=== PATIENT | male | born 1940 | race African-American/Black ===

== ENCOUNTER 2021-03-15 19:29 | Inpatient (IN) | payer OTHER ==
[~2021-03-15] VITALS: Ht 188 cm; Wt 80.0 kg
[2021-03-15] MEDS ORDERED: ASPIRIN 81MG TABLET PO ONE (19:45)
[2021-03-15] MEDS ORDERED: NITROGLYCERIN 0.4MG TABLET SL SL PRN (19:45)
[2021-03-15 20:29] LABS: CHLORIDE 106 mEq/L (98-107)
[2021-03-15 21:01] LABS: HEMOGLOBIN. 14.7 g/dL (14.0-18.0); MEAN CORPUSCULAR HEMOGLOBIN 29.6 pg (28.0-32.0); MEAN CORPUSCULAR VOLUME 90.6 fL (80.0-94.0); PLATELET 217 x1000/uL (130-400); RED BLOOD CELL COUNT 4.97 mill/uL (4.7-6.1); RED CELL DISTRIBUTION WIDTH 13.7 % (11.6-14.6)
[2021-03-15 21:59] LABS: PLATELET ESTIMATE NORMAL
[2021-03-16] MEDS ORDERED: ASPIRIN 81MG TABLET PO NR (01:15)
[2021-03-16 09:35] VITALS: BP 175/82
[2021-03-16] MEDS ORDERED: NEBI10TA2 PO (10:08)
[2021-03-16] MEDS ORDERED: CINN500C5 PO (10:08)
[2021-03-16] MEDS ORDERED: TURM500C6 PO (10:08)
[2021-03-16] MEDS ORDERED: AMLO10TA80 PO (10:08)
[2021-03-16] MEDS ORDERED: ONDANSETRON HCL 4MG/2ML INJ IV PRN (10:45)
[2021-03-16] MEDS ORDERED: AMLODIPINE 10MG TABLET PO SCH (10:45)
[2021-03-16] MEDS ORDERED: IPRATROPIUM/ALBUTEROL 0.5-3(2.5)MG/3ML NEB HHN PRN (10:45)
[2021-03-16 12:00] VITALS: BP 165/83
[2021-03-16] MEDS ORDERED: METOPROLOL TARTRATE 50MG TABLET PO NR (15:30)
[2021-03-16 16:00] VITALS: BP 157/82
[2021-03-16] MEDS: ENOXAPARIN 80MG/0.8ML SYR SUBCUT SCH ×2 (16:29→23:27)
[2021-03-16 20:00] VITALS: BP 127/68
[2021-03-16] MEDS: METOPROLOL TARTRATE 50MG TABLET PO SCH (20:30)
[2021-03-16] MEDS: HYDROCORTISONE 1% OINT 28.35GM TOP SCH (20:30)
[2021-03-16 20:40] LABS: *BARBITURATES SCREEN URINE NEGATIVE (NEGATIVE)
[2021-03-16 20:41] LABS: *AMPHETAMINES SCREEN URINE NEGATIVE (NEGATIVE); *BENZODIAZEPINES SCREEN URINE NEGATIVE (NEGATIVE); *COCAINE SCREEN URINE NEGATIVE (NEGATIVE); METHADONE URINE SCREEN NEGATIVE (NEGATIVE); OPIATES URINE SCREEN NEGATIVE (NEGATIVE); PHENCYCLIDINE URINE SCREEN NEGATIVE (NEGATIVE)
[2021-03-16 20:42] LABS: CANNABINOID URINE SCREEN NEGATIVE (NEGATIVE)
[2021-03-16 21:29] LABS: INR 1.2; PROTHROMBIN TIME 12.3 sec (9.6-11.0)
[2021-03-17] VITALS: BP 138/72
[2021-03-17 04:00] VITALS: BP 150/86
[2021-03-17 06:06] LABS: CREATINE KINASE MB FRACTION 6.8 ng/mL (0.5-3.6)
[2021-03-17] MEDS: ASPIRIN 81MG TABLET PO SCH (09:35)
[2021-03-17] MEDS: ENOXAPARIN 80MG/0.8ML SYR SUBCUT SCH ×2 (09:36→21:06)
[2021-03-17] MEDS: AMLODIPINE 5MG TABLET PO SCH (09:36)
[2021-03-17] MEDS: ACETAMINOPHEN 325MG TABLET PO PRN (09:38)
[2021-03-17] MEDS: HYDROCORTISONE 1% OINT 28.35GM TOP SCH ×2 (09:39→21:06)
[2021-03-17] MEDS: METOPROLOL TARTRATE 50MG TABLET PO SCH ×2 (09:44→21:06)
[2021-03-17 09:45] VITALS: BP 166/91
[2021-03-17] MEDS ORDERED: HYDRALAZINE HCL 100MG TABLET PO NR (14:15)
[2021-03-17] MEDS: SODIUM CHLORIDE 0.9% 1,000 ML IV SCH (14:39)
[2021-03-17 20:00] VITALS: BP 156/61
[2021-03-17] MEDS: HYDRALAZINE HCL 100MG TABLET PO SCH (21:05)
[2021-03-17] MEDS: ATORVASTATIN CALCIUM 20MG TABLET PO SCH (21:05)
[2021-03-18] VITALS (7 sets, daily range): BP systolic 114–143; BP diastolic 52–66
[2021-03-18] MEDS: SODIUM CHLORIDE 0.9% 1,000 ML IV SCH ×2 (03:54→16:48)
[2021-03-18] MEDS: ASPIRIN 81MG TABLET PO SCH (08:53)
[2021-03-18] MEDS: METOPROLOL TARTRATE 50MG TABLET PO SCH ×2 (08:54→22:00)
[2021-03-18] MEDS: AMLODIPINE 5MG TABLET PO SCH (08:54)
[2021-03-18] MEDS: HYDRALAZINE HCL 100MG TABLET PO SCH ×2 (08:54→22:00)
[2021-03-18] MEDS: HYDROCORTISONE 1% OINT 28.35GM TOP SCH ×3 (08:55→22:05)
[2021-03-18] MEDS: ENOXAPARIN 80MG/0.8ML SYR SUBCUT SCH ×2 (08:58→22:01)
[2021-03-18] MEDS: CLOPIDOGREL 75MG TABLET PO SCH (12:00)
[2021-03-18 19:09] LABS: BASOPHILS % 0.8 % (0.0-2.0); EOSINOPHILS % 6.8 % (0.0-5.0); HEMATOCRIT. 43.7 % (42.0-52.0); HEMOGLOBIN. 14.2 g/dL (14.0-18.0); LYMPHOCYTES % 18.1 % (20.0-50.0); MEAN CORPUSCULAR HEMOGLOBIN 29.5 pg (28.0-32.0); MEAN CORPUSCULAR VOLUME 90.6 fL (80.0-94.0); MEAN PLATELET VOLUME 9.2 fl (7.4-10.4); MONOCYTES % 8.8 % (2.0-8.0); NEUTROPHILS % 65.5 % (40.0-76.0); PLATELET 205 x1000/uL (130-400); RED BLOOD CELL COUNT 4.82 mill/uL (4.7-6.1); RED CELL DISTRIBUTION WIDTH 13.6 % (11.6-14.6)
[2021-03-18 19:29] LABS: CHLORIDE 111 mEq/L (98-107)
[2021-03-18] MEDS: ATORVASTATIN CALCIUM 20MG TABLET PO SCH (22:00)
[2021-03-19 04:00] VITALS: BP 123/66
[2021-03-19] MEDS: SODIUM CHLORIDE 0.9% 1,000 ML IV SCH ×2 (06:03→21:04)
[2021-03-19 08:00] VITALS: BP 146/78
[2021-03-19] MEDS: ENOXAPARIN 80MG/0.8ML SYR SUBCUT SCH ×2 (09:00→21:03)
[2021-03-19] MEDS: HYDROCORTISONE 1% OINT 28.35GM TOP SCH ×2 (10:16→21:02)
[2021-03-19] MEDS: AMLODIPINE 5MG TABLET PO SCH (10:17)
[2021-03-19] MEDS: HYDRALAZINE HCL 100MG TABLET PO SCH ×2 (10:17→21:04)
[2021-03-19] MEDS: CLOPIDOGREL 75MG TABLET PO SCH (10:17)
[2021-03-19] MEDS: ASPIRIN 81MG TABLET PO SCH (10:17)
[2021-03-19] MEDS: METOPROLOL TARTRATE 50MG TABLET PO SCH ×2 (10:18→21:04)
[2021-03-19 12:00] VITALS: BP 99/54
[2021-03-19] MEDS ORDERED: INFLUENZA VACCINE 05/PF 0.5 ML SYRINGE IM ONE ×2 (12:30)
[2021-03-19] MEDS: ACETAMINOPHEN 325MG TABLET PO PRN (14:05)
[2021-03-19 16:00] VITALS: BP 128/60
[2021-03-19 20:00] VITALS: BP 121/55
[2021-03-19] MEDS: ATORVASTATIN CALCIUM 20MG TABLET PO SCH (21:04)
[2021-03-20] VITALS (9 sets, daily range): BP systolic 104–145; BP diastolic 48–68
[2021-03-20] MEDS ORDERED: HEPARIN SODIUM 1,000 UNIT/1ML VIAL IV ONE (08:07)
[2021-03-20] MEDS ORDERED: NICARDIPINE 100MCG/ML 10ML VIAL (CATH LAB) IV ONE (08:07)
[2021-03-20] MEDS ORDERED: NITROGLYCERIN 50MCG/ML 10ML VIAL (CATH LAB) IV ONE (08:07)
[2021-03-20] MEDS: SODIUM CHLORIDE 0.9% 1,000 ML IV SCH ×2 (08:55→22:42)
[2021-03-20] MEDS: ASPIRIN 81MG TABLET PO SCH (09:00)
[2021-03-20] MEDS: CLOPIDOGREL 75MG TABLET PO SCH (09:00)
[2021-03-20] MEDS: ENOXAPARIN 80MG/0.8ML SYR SUBCUT SCH ×2 (09:00→21:08)
[2021-03-20] MEDS: METOPROLOL TARTRATE 50MG TABLET PO SCH ×2 (09:24→21:07)
[2021-03-20] MEDS: AMLODIPINE 5MG TABLET PO SCH (09:24)
[2021-03-20] MEDS: HYDRALAZINE HCL 100MG TABLET PO SCH ×2 (09:24→21:06)
[2021-03-20] MEDS: HYDROCORTISONE 1% OINT 28.35GM TOP SCH ×2 (09:25→21:06)
[2021-03-20] MEDS ORDERED: IODIXANOL 320MG/ML 100 ML BOTTLE IV ONE (16:11)
[2021-03-20] MEDS ORDERED: LIDOCAINE HCL 1% 20ML VIAL (Pyxis) INJ ONE (16:11)
[2021-03-20] MEDS ORDERED: FENTANYL CITRATE/PF 50MCG/ML 2ML VIAL ONE (16:11)
[2021-03-20] MEDS ORDERED: MIDAZOLAM HCL 2 MG/2 ML VIAL ONE (16:11)
[2021-03-20] MEDS ORDERED: ATROPINE SULFATE 1MG/10ML SYR IV PRN (17:30)
[2021-03-20] MEDS ORDERED: ATROPINE SULFATE 1MG/ML VIAL IV PRN (17:45)
[2021-03-20] MEDS ORDERED: ALPRAZOLAM 0.25 MG TABLET PO PRN (18:30)
[2021-03-20] MEDS ORDERED: NITROGLYCERIN 0.4MG TABLET SL SL PRN (18:30)
[2021-03-20] MEDS: SODIUM CHLORIDE 0.9% INJ 3ML FLUSH IVF SCH (21:03)
[2021-03-20] MEDS: ATORVASTATIN CALCIUM 20MG TABLET PO SCH (21:08)
[2021-03-21] VITALS (12 sets, daily range): BP systolic 113–169; BP diastolic 60–80
[2021-03-21] MEDS: SODIUM CHLORIDE 0.9% INJ 3ML FLUSH IVF SCH ×3 (05:03→21:04)
[2021-03-21] MEDS: ASPIRIN 81MG TABLET PO SCH (08:09)
[2021-03-21] MEDS: METOPROLOL TARTRATE 50MG TABLET PO SCH ×2 (08:09→20:56)
[2021-03-21] MEDS: AMLODIPINE 5MG TABLET PO SCH ×3 (08:10→20:57)
[2021-03-21] MEDS: ENOXAPARIN 80MG/0.8ML SYR SUBCUT SCH (08:10)
[2021-03-21] MEDS: HYDROCORTISONE 1% OINT 28.35GM TOP SCH ×2 (08:10→20:55)
[2021-03-21] MEDS: HYDRALAZINE HCL 100MG TABLET PO SCH ×2 (08:10→20:55)
[2021-03-21] MEDS: SODIUM CHLORIDE 0.9% 1,000 ML IV SCH ×2 (12:24→23:59)
[2021-03-21 12:52] LABS: CHLORIDE 109 mEq/L (98-107)
[2021-03-21 12:53] LABS: HEMATOCRIT 41.8 % (42.0-52.0); HEMOGLOBIN 13.8 g/dL (14.0-18.0); MEAN CORPUSCULAR VOLUME 90.9 fL (80.0-94.0); PLATELET 206 x1000/uL (130-400); RED CELL DISTRIBUTION WIDTH 13.9 % (11.6-14.6)
[2021-03-21 13:01] LABS: INR 1.1; PARTIAL THROMBOPLASTIN TIME 38.9 sec (23.4-31.0); PROTHROMBIN TIME 12.2 sec (9.6-11.0)
[2021-03-21] MEDS ORDERED: POTASSIUM CHLORIDE 20MEQ TABLET SR PO NR (17:00)
[2021-03-21] MEDS: ALLOPURINOL 300 MG TABLET PO SCH (20:56)
[2021-03-21] MEDS: ATORVASTATIN CALCIUM 20MG TABLET PO SCH (20:56)
[2021-03-21] MEDS ORDERED: ASCORBIC ACID 500 MG TABLET PO SCH (21:00)
[2021-03-21] MEDS ORDERED: CHLORHEXIDINE GLUCONATE 4% EXTERNAL USE TOP SCH (21:00)
[2021-03-21] MEDS ORDERED: BISACODYL 10MG SUPP PR PRN (21:00)
[2021-03-21] MEDS ORDERED: DOCUSATE SODIUM 100MG CAPSULE PO SCH (21:00)
[2021-03-21] MEDS ORDERED: IOHEXOL-350 100 ML BOTTLE ONE (21:39)
[2021-03-22] VITALS (58 sets, daily range): BP systolic 89–181; BP diastolic 21–94
[2021-03-22] MEDS ORDERED: BLOOD SUGAR DIAGNOSTIC STRIP TEST ONE (04:00)
[2021-03-22] MEDS: ALLOPURINOL 300 MG TABLET PO SCH (04:44)
[2021-03-22] MEDS ORDERED: CEFAZOLIN 2,000 MG in DEXT 5% WATER 100 ML IV ONE (05:00)
[2021-03-22] MEDS: SODIUM CHLORIDE 0.9% INJ 3ML FLUSH IVF SCH ×3 (05:14→20:44)
[2021-03-22] MEDS ORDERED: POLYMYXIN B SULFATE 500000 UNITS/VIAL ONE (05:28)
[2021-03-22] MEDS ORDERED: BACITRACIN 15GM TUBE TOP ONE (05:29)
[2021-03-22] MEDS ORDERED: SKIN ADHESIVE 0.7 GM EA TOP ONE (05:29)
[2021-03-22] MEDS ORDERED: THROMBIN (BOVINE) 5000 UNITS/VIAL TOP ONE ×3 (05:29→11:22)
[2021-03-22] MEDS ORDERED: NICARDIPINE 40MG/200ML PREMIX 200 ML IV ONE (05:32)
[2021-03-22] MEDS ORDERED: DOPAMINE 400MG/250ML PREMIX 250 ML IV ONE (05:33)
[2021-03-22] MEDS ORDERED: HEPARIN 1000 UNITS/ML 10ML ONE ×3 (05:52→08:48)
[2021-03-22 05:54] LABS: CHLORIDE 107 mEq/L (98-107)
[2021-03-22 05:56] LABS: BASOPHILS % 0.7 % (0.0-2.0); EOSINOPHILS % 7.2 % (0.0-5.0); HEMATOCRIT. 42.1 % (42.0-52.0); HEMOGLOBIN. 14.1 g/dL (14.0-18.0); LYMPHOCYTES % 16.4 % (20.0-50.0); MONOCYTES % 9.8 % (2.0-8.0); NEUTROPHILS % 65.9 % (40.0-76.0); PLATELET 198 x1000/uL (130-400); RED BLOOD CELL COUNT 4.68 mill/uL (4.7-6.1); RED CELL DISTRIBUTION WIDTH 13.6 % (11.6-14.6)
[2021-03-22] MEDS ORDERED: PAPAVERINE HCL 180MG in SODIUM CHLORIDE 0.9% 24ML IV SCH (06:00)
[2021-03-22] MEDS ORDERED: DEL NIDO ELECTROLYTE-S(PH 7.4) 1,000 ML IV SCH ×2 (06:00)
[2021-03-22] MEDS ORDERED: CEFAZOLIN 2,000 MG in DEXT 5% WATER 100 ML IV SCH (06:00)
[2021-03-22] MEDS ORDERED: INSULIN REGULAR (DRIP) 100 UNITS in SODIUM CHLORIDE 0.9% 99 ML IV SCH ×2 (06:00→15:00)
[2021-03-22] MEDS ORDERED: NOREPINEPHRINE 8 MG in DEXT 5% WATER 242 ML IV SCH (06:00)
[2021-03-22] MEDS ORDERED: AMINOCAPROIC ACID 5,000 MG in SODIUM CHLORIDE 0.9% 230 ML IV SCH (06:00)
[2021-03-22] MEDS ORDERED: NICARDIPINE 50 MG in NS 230 ML IV SCH (06:00)
[2021-03-22] MEDS ORDERED: CHLORHEXIDINE GLUCONATE 4% EXTERNAL USE TOP SCH (06:00)
[2021-03-22] MEDS ORDERED: EPINEPHRINE 5 MG in DEXT 5% WATER 245 ML IV SCH (06:00)
[2021-03-22] MEDS ORDERED: FENTANYL CITRATE/PF 50MCG/ML 5ML VIAL ONE (06:40)
[2021-03-22] MEDS ORDERED: ETOMIDATE 2MG/ML 10ML VIAL IV ONE (06:41)
[2021-03-22] MEDS ORDERED: ACETAMINOPHEN 500MG TABLET ONE (06:41)
[2021-03-22] MEDS ORDERED: ROCURONIUM BROMIDE 10MG/ML VIAL 5ML IV ONE (06:42)
[2021-03-22] MEDS ORDERED: LIDOCAINE HCL 2% 5ML SYRINGE IV ONE ×2 (06:43→08:13)
[2021-03-22] MEDS ORDERED: CALCIUM CHLORIDE 1GM/10ML SYR IV ONE ×3 (06:43→11:09)
[2021-03-22 06:45] LABS: INR 1.1; PROTHROMBIN TIME 11.4 sec (9.6-11.0)
[2021-03-22] MEDS ORDERED: PROPOFOL 200MG/20ML VIAL IV ONE (06:59)
[2021-03-22 07:28] LABS: BG BASE EXCESS -2.4 mmol/L (-2.0-2.0); BG CARBOXYHEMOGLOBIN 0.5 % (0.5-1.5); BG DEOXYHEMOGLOBIN 0.4 % (0.0-5.0); BG FRACTION INSPIRED OXYGEN 100; BG HCO3 ACT 22.2 mmol/L (22.0-26.0); BG METHEMOGLOBIN 0.3 % (0.0-1.5); BG OXYGEN SATURATION 99.6 % (92.0-98.5); BG OXYHEMOGLOBIN 98.8 % (94.0-97.0); BG PCO2 37.8 mmHg (35.0-45.0); BG PH 7.386 (7.350-7.450); BG PO2 450.6 mmHg (75.0-100.0); BG SAMPLE SITE ALINE; BG TOTAL HEMOGLOBIN 14.2 g/dL (12.0-18.0)
[2021-03-22] MEDS ORDERED: NITROGLYCERIN 50MG PREMIX 250 ML IV ONE (08:00)
[2021-03-22] MEDS ORDERED: AMINOCAPROIC ACID 250 MG/ML 20ML VIAL ONE ×2 (08:12→08:36)
[2021-03-22] MEDS ORDERED: ALBUMIN HUMAN 25GM/100ML (25%) IV ONE (08:13)
[2021-03-22] MEDS ORDERED: SODIUM BICARBONATE 8.4% 1 MEQ/ML 50ML SYR IV ONE (08:13)
[2021-03-22] MEDS ORDERED: HEPARIN 10,000 UNITS/ML VIAL ONE ×2 (08:13→08:48)
[2021-03-22] MEDS ORDERED: MAGNESIUM SULFATE 5GM/10ML VIAL IV ONE (08:13)
[2021-03-22] MEDS ORDERED: MANNITOL 20% (20GM/100ML) BAG 500ML PREMIX IV ONE (08:13)
[2021-03-22] MEDS ORDERED: POTASSIUM CHLORIDE 40MEQ/20ML INJ IV ONE (08:13)
[2021-03-22] MEDS ORDERED: PHENYLEPHRINE HCL 10 MG/ML 1ML (IV VIAL) IV ONE ×2 (08:13→10:40)
[2021-03-22] MEDS ORDERED: ALBUMIN HUMAN 25GM/500ML (5%) IV ONE (08:13)
[2021-03-22] MEDS: ENOXAPARIN 40MG/0.4ML SYR SUBCUT SCH (09:00)
[2021-03-22] MEDS: HYDROCORTISONE 1% OINT 28.35GM TOP SCH ×2 (09:00→21:14)
[2021-03-22] MEDS ORDERED: ENOXAPARIN 80MG/0.8ML SYR SUBCUT SCH (09:00)
[2021-03-22] MEDS: AMLODIPINE 5MG TABLET PO SCH ×2 (09:00→20:46)
[2021-03-22] MEDS: ASPIRIN 81MG TABLET PO SCH (09:00)
[2021-03-22] MEDS: HYDRALAZINE HCL 100MG TABLET PO SCH ×2 (09:00→20:45)
[2021-03-22] MEDS: METOPROLOL TARTRATE 50MG TABLET PO SCH ×2 (09:00→20:45)
[2021-03-22] MEDS ORDERED: VECURONIUM BROMIDE 10 MG/VIAL IV ONE (10:05)
[2021-03-22] MEDS ORDERED: SODIUM CHLORIDE 0.9% 10ML VIAL ONE (10:06)
[2021-03-22] MEDS ORDERED: KCL 10MEQ/50ML PREMIX 150 ML IV PRN (10:30)
[2021-03-22] MEDS ORDERED: KCL 10MEQ/50ML PREMIX 200 ML IV PRN (10:30)
[2021-03-22] MEDS ORDERED: METHYLENE BLUE 50 MG/10 ML AMP IV ONE (10:43)
[2021-03-22] MEDS ORDERED: VASOPRESSIN 20 UNITS in SODIUM CHLORIDE 0.9% 100 ML IV PRN (10:45)
[2021-03-22] MEDS ORDERED: VASOPRESSIN 20 UNIT/ML 1ML ONE (10:47)
[2021-03-22] MEDS ORDERED: INSULIN REGULAR (DRIP) 100 UNITS in SODIUM CHLORIDE 0.9% 100 ML IV SCH (11:00)
[2021-03-22] MEDS ORDERED: PROTAMINE SULFATE 10MG/ML VIAL 25ML IV ONE (12:23)
[2021-03-22] MEDS ORDERED: MAGNESIUM SULFATE 3 GM in DEXT 5% WATER 100 ML IV PRN ×2 (12:30→14:00)
[2021-03-22] MEDS ORDERED: MAGNESIUM 2 G PREMIX 50 ML IV PRN ×2 (12:30→14:00)
[2021-03-22] MEDS ORDERED: MAGNESIUM 1 G PREMIX 100 ML IV PRN ×2 (12:30→14:00)
[2021-03-22] MEDS ORDERED: CEFAZOLIN SODIUM 1000MG/VIAL ONE (12:56)
[2021-03-22] MEDS ORDERED: BLOOD SUGAR DIAGNOSTIC STRIP TEST SCH ×2 (13:00→15:00)
[2021-03-22] MEDS ORDERED: AMINOCAPROIC ACID 5,000 MG in SODIUM CHLORIDE 0.9% 230 ML IV ONE (13:00)
[2021-03-22] MEDS ORDERED: ONDANSETRON HCL 4MG/2ML INJ ONE (13:10)
[2021-03-22] MEDS ORDERED: PROPOFOL 10MG/ML 100ML 100 ML IV ONE (13:14)
[2021-03-22 13:41] LABS: HEMATOCRIT. 30.3 % (42.0-52.0); MEAN CORPUSCULAR HEMOGLOBIN 29.8 pg (28.0-32.0); MEAN CORPUSCULAR VOLUME 90.7 fL (80.0-94.0); MEAN PLATELET VOLUME 9.7 fl (7.4-10.4); PLATELET 123 x1000/uL (130-400); RED BLOOD CELL COUNT 3.34 mill/uL (4.7-6.1); RED CELL DISTRIBUTION WIDTH 13.5 % (11.6-14.6)
[2021-03-22 13:49] LABS: CHLORIDE 110 mEq/L (98-107)
[2021-03-22 13:53] LABS: INR 1.3; PARTIAL THROMBOPLASTIN TIME 30.5 sec (23.4-31.0); PROTHROMBIN TIME 13.9 sec (9.6-11.0)
[2021-03-22] MEDS ORDERED: ONDANSETRON HCL 4MG/2ML INJ IV PRN (14:00)
[2021-03-22] MEDS ORDERED: MORPHINE SULFATE 2 MG/ML CPJ (NOT FOR IM USE) IV PRN (14:00)
[2021-03-22] MEDS ORDERED: ACETAMINOPHEN 325MG TABLET PO PRN (14:00)
[2021-03-22] MEDS ORDERED: OXYCODONE HCL/ACETAMINOPHEN 5/325MG TABLET PO PRN ×2 (14:00)
[2021-03-22 14:31] LABS: BG BASE EXCESS 1.6 mmol/L (-2.0-2.0); BG CARBOXYHEMOGLOBIN 0.3 % (0.5-1.5); BG DEOXYHEMOGLOBIN 1.8 % (0.0-5.0); BG FRACTION INSPIRED OXYGEN 100; BG HCO3 ACT 25.8 mmol/L (22.0-26.0); BG METHEMOGLOBIN 0.4 % (0.0-1.5); BG OXYGEN SATURATION 98.2 % (92.0-98.5); BG OXYHEMOGLOBIN 97.5 % (94.0-97.0); BG PCO2 38.7 mmHg (35.0-45.0); BG PH 7.441 (7.350-7.450); BG PO2 157.1 mmHg (75.0-100.0); BG SAMPLE SITE ALINE; BG TOTAL HEMOGLOBIN 10.9 g/dL (12.0-18.0); BG VENT MODE VENT - AC
[2021-03-22 14:37] LABS: PLATELET ESTIMATE SLIGHTLY DECREASED
[2021-03-22] MEDS ORDERED: SODIUM CHLORIDE 0.9% 500 ML IV PRN (14:38)
[2021-03-22] MEDS: BLOOD SUGAR DIAGNOSTIC STRIP TEST SCH ×10 (14:51→23:11)
[2021-03-22] MEDS: DEXT 5%/0.45% NACL 1000ML 1,000 ML IV SCH ×2 (14:52→23:57)
[2021-03-22] MEDS: DOPAMINE 400MG/250ML PREMIX 250 ML IV PRN (14:55)
[2021-03-22] MEDS ORDERED: PROPOFOL 10MG/ML 100ML 100 ML IV PRN (15:00)
[2021-03-22] MEDS ORDERED: NALOXONE HCL 0.4MG/ML VIAL IV PRN (15:00)
[2021-03-22] MEDS: MAGNESIUM HYDROXIDE 400MG/5ML 30ML UDC PO SCH ×3 (15:18→23:41)
[2021-03-22] MEDS: ALBUMIN HUMAN 12.5G/250ML (5%) IV PRN ×2 (15:47→20:43)
[2021-03-22] MEDS ORDERED: ALBUMIN HUMAN 12.5G/250ML (5%) IV NR (16:00)
[2021-03-22] MEDS: KCL 10MEQ/50ML PREMIX 100 ML IV PRN (16:10)
[2021-03-22] MEDS: IPRATROPIUM/ALBUTEROL 0.5-3(2.5)MG/3ML NEB HHN SCH ×2 (16:21→21:05)
[2021-03-22 16:30] LABS: BG BASE EXCESS 0.8 mmol/L (-2.0-2.0); BG CARBOXYHEMOGLOBIN 0.3 % (0.5-1.5); BG DEOXYHEMOGLOBIN 4.3 % (0.0-5.0); BG FRACTION INSPIRED OXYGEN 75; BG HCO3 ACT 26.2 mmol/L (22.0-26.0); BG METHEMOGLOBIN 0.3 % (0.0-1.5); BG OXYGEN SATURATION 95.7 % (92.0-98.5); BG OXYHEMOGLOBIN 95.1 % (94.0-97.0); BG PCO2 45.6 mmHg (35.0-45.0); BG PH 7.378 (7.350-7.450); BG PO2 89.4 mmHg (75.0-100.0); BG SAMPLE SITE ALINE; BG TOTAL HEMOGLOBIN 9.7 g/dL (12.0-18.0); BG TOTAL RESPIRATORY RATE 20 b/min; BG VENT MODE VENT - AC
[2021-03-22] MEDS: DOCUSATE SODIUM 100MG CAPSULE PO SCH (18:07)
[2021-03-22] MEDS: CEFAZOLIN 1000MG PREMIX 50 ML IV SCH (18:08)
[2021-03-22 18:16] LABS: HEMATOCRIT. 27.4 % (42.0-52.0); HEMOGLOBIN. 9.1 g/dL (14.0-18.0); MEAN CORPUSCULAR HEMOGLOBIN 30.1 pg (28.0-32.0); MEAN CORPUSCULAR VOLUME 90.6 fL (80.0-94.0); MEAN PLATELET VOLUME 9.1 fl (7.4-10.4); PLATELET 128 x1000/uL (130-400); RED BLOOD CELL COUNT 3.03 mill/uL (4.7-6.1); RED CELL DISTRIBUTION WIDTH 13.4 % (11.6-14.6)
[2021-03-22 18:46] LABS: BG BASE EXCESS -0.7 mmol/L (-2.0-2.0); BG CARBOXYHEMOGLOBIN 0.3 % (0.5-1.5); BG DEOXYHEMOGLOBIN 3.8 % (0.0-5.0); BG FRACTION INSPIRED OXYGEN 75; BG HCO3 ACT 24.6 mmol/L (22.0-26.0); BG METHEMOGLOBIN 0.2 % (0.0-1.5); BG OXYGEN SATURATION 96.2 % (92.0-98.5); BG OXYHEMOGLOBIN 95.7 % (94.0-97.0); BG PCO2 43.4 mmHg (35.0-45.0); BG PH 7.372 (7.350-7.450); BG PO2 96.4 mmHg (75.0-100.0); BG TOTAL HEMOGLOBIN 9.9 g/dL (12.0-18.0); BG VENT MODE VENT - AC
[2021-03-22 19:45] LABS: PLATELET ESTIMATE SLIGHTLY DECREASED
[2021-03-22 20:04] LABS: BG BASE EXCESS -0.6 mmol/L (-2.0-2.0); BG CARBOXYHEMOGLOBIN 0.2 % (0.5-1.5); BG FRACTION INSPIRED OXYGEN 75; BG HCO3 ACT 24.5 mmol/L (22.0-26.0); BG METHEMOGLOBIN 0.3 % (0.0-1.5); BG OXYHEMOGLOBIN 94.5 % (94.0-97.0); BG PCO2 41.8 mmHg (35.0-45.0); BG PH 7.385 (7.350-7.450); BG PO2 84.2 mmHg (75.0-100.0); BG SAMPLE SITE ALINE; BG TOTAL HEMOGLOBIN 9.5 g/dL (12.0-18.0); BG VENT MODE VENT - AC
[2021-03-22] MEDS ORDERED: CALCIUM IV STA (20:52)
[2021-03-22] MEDS: ATORVASTATIN CALCIUM 20MG TABLET PO SCH (21:14)
[2021-03-22 22:11] LABS: BG BASE EXCESS -0.2 mmol/L (-2.0-2.0); BG CARBOXYHEMOGLOBIN 0.3 % (0.5-1.5); BG DEOXYHEMOGLOBIN 3.7 % (0.0-5.0); BG FRACTION INSPIRED OXYGEN 50; BG HCO3 ACT 24.4 mmol/L (22.0-26.0); BG OXYGEN SATURATION 96.3 % (92.0-98.5); BG PCO2 39.5 mmHg (35.0-45.0); BG PH 7.408 (7.350-7.450); BG PO2 93.2 mmHg (75.0-100.0); BG SAMPLE SITE ALINE; BG TOTAL HEMOGLOBIN 9.1 g/dL (12.0-18.0); BG VENT MODE VENT - AC
[2021-03-22] MEDS ORDERED: CALCIUM CHLORIDE 5,000 MG in DEXT 5% WATER 500 ML IV NR (22:30)
[2021-03-23] VITALS (122 sets, daily range): BP systolic 55–177; BP diastolic 29–79
[2021-03-23] MEDS: BLOOD SUGAR DIAGNOSTIC STRIP TEST SCH ×24 (00:28→23:00)
[2021-03-23] MEDS: IPRATROPIUM/ALBUTEROL 0.5-3(2.5)MG/3ML NEB HHN SCH ×6 (00:53→21:02)
[2021-03-23] MEDS: DOPAMINE 400MG/250ML PREMIX 250 ML IV PRN (01:03)
[2021-03-23 02:04] LABS: BG CARBOXYHEMOGLOBIN 0.3 % (0.5-1.5); BG DEOXYHEMOGLOBIN 6.7 % (0.0-5.0); BG FRACTION INSPIRED OXYGEN 40; BG HCO3 ACT 25.2 mmol/L (22.0-26.0); BG METHEMOGLOBIN 0.4 % (0.0-1.5); BG OXYGEN SATURATION 93.3 % (92.0-98.5); BG OXYHEMOGLOBIN 92.6 % (94.0-97.0); BG PCO2 43.6 mmHg (35.0-45.0); BG PO2 73.2 mmHg (75.0-100.0); BG SAMPLE SITE ALINE; BG TOTAL HEMOGLOBIN 9.4 g/dL (12.0-18.0); BG VENT MODE VENT - AC
[2021-03-23] MEDS: CEFAZOLIN 1000MG PREMIX 50 ML IV SCH ×3 (02:12→17:00)
[2021-03-23 02:33] LABS: HEMATOCRIT. 26.6 % (42.0-52.0); HEMOGLOBIN. 8.9 g/dL (14.0-18.0); MEAN CORPUSCULAR HEMOGLOBIN 30.5 pg (28.0-32.0); MEAN CORPUSCULAR VOLUME 91.3 fL (80.0-94.0); PLATELET 119 x1000/uL (130-400); RED BLOOD CELL COUNT 2.91 mill/uL (4.7-6.1); RED CELL DISTRIBUTION WIDTH 13.7 % (11.6-14.6)
[2021-03-23 02:45] LABS: PHOSPHORUS 2.9 mg/dL (2.5-4.9)
[2021-03-23 03:34] LABS: BG BASE EXCESS 1.1 mmol/L (-2.0-2.0); BG CARBOXYHEMOGLOBIN 0.3 % (0.5-1.5); BG DEOXYHEMOGLOBIN 6.7 % (0.0-5.0); BG FRACTION INSPIRED OXYGEN 40; BG HCO3 ACT 26.3 mmol/L (22.0-26.0); BG METHEMOGLOBIN 0.4 % (0.0-1.5); BG OXYGEN SATURATION 93.3 % (92.0-98.5); BG OXYHEMOGLOBIN 92.6 % (94.0-97.0); BG PCO2 44.8 mmHg (35.0-45.0); BG PH 7.387 (7.350-7.450); BG PO2 71.5 mmHg (75.0-100.0); BG SAMPLE SITE ALINE; BG TOTAL HEMOGLOBIN 9.6 g/dL (12.0-18.0); BG VENT MODE VENT - CPAP
[2021-03-23] MEDS: MAGNESIUM HYDROXIDE 400MG/5ML 30ML UDC PO SCH ×4 (04:18→15:33)
[2021-03-23] MEDS: ACETAMINOPHEN 325MG TABLET PO PRN (04:18)
[2021-03-23] MEDS: SODIUM CHLORIDE 0.9% INJ 3ML FLUSH IVF SCH ×3 (04:19→21:32)
[2021-03-23 07:59] LABS: BG BASE EXCESS -1.7 mmol/L (-2.0-2.0); BG CARBOXYHEMOGLOBIN 0.3 % (0.5-1.5); BG DEOXYHEMOGLOBIN 9.6 % (0.0-5.0); BG FRACTION INSPIRED OXYGEN 28; BG HCO3 ACT 24.1 mmol/L (22.0-26.0); BG METHEMOGLOBIN 0.4 % (0.0-1.5); BG OXYGEN SATURATION 90.3 % (92.0-98.5); BG OXYHEMOGLOBIN 89.7 % (94.0-97.0); BG PCO2 45.2 mmHg (35.0-45.0); BG PH 7.344 (7.350-7.450); BG PO2 64.3 mmHg (75.0-100.0); BG SAMPLE SITE RIGHT RADIAL; BG TOTAL HEMOGLOBIN 9.6 g/dL (12.0-18.0); BG VENT MODE COOL AEROSOL
[2021-03-23 08:12] LABS: HEMATOCRIT. 26.5 % (42.0-52.0); HEMOGLOBIN. 8.9 g/dL (14.0-18.0); MEAN CORPUSCULAR HEMOGLOBIN 30.7 pg (28.0-32.0); MEAN CORPUSCULAR VOLUME 91.5 fL (80.0-94.0); MEAN PLATELET VOLUME 10.2 fl (7.4-10.4); PLATELET 118 x1000/uL (130-400); RED BLOOD CELL COUNT 2.89 mill/uL (4.7-6.1); RED CELL DISTRIBUTION WIDTH 13.6 % (11.6-14.6)
[2021-03-23] MEDS: ENOXAPARIN 40MG/0.4ML SYR SUBCUT SCH (09:00)
[2021-03-23] MEDS: ASPIRIN 81MG TABLET PO SCH (09:23)
[2021-03-23] MEDS: DOCUSATE SODIUM 100MG CAPSULE PO SCH ×2 (09:23→17:00)
[2021-03-23] MEDS: FAMOTIDINE 20MG/2ML VIAL IV SCH (09:23)
[2021-03-23] MEDS: METOPROLOL TARTRATE 25MG TABLET PO SCH ×2 (09:23→21:00)
[2021-03-23] MEDS: AMLODIPINE 5MG TABLET PO SCH (09:50)
[2021-03-23] MEDS: HYDROCORTISONE 1% OINT 28.35GM TOP SCH ×2 (10:42→21:32)
[2021-03-23] MEDS: HYDRALAZINE HCL 100MG TABLET PO SCH (10:50)
[2021-03-23 11:53] LABS: HEMATOCRIT. 27.9 % (42.0-52.0); MEAN CORPUSCULAR HEMOGLOBIN 29.8 pg (28.0-32.0); MEAN PLATELET VOLUME 10.2 fl (7.4-10.4); PLATELET 119 x1000/uL (130-400); RED BLOOD CELL COUNT 3.03 mill/uL (4.7-6.1)
[2021-03-23 12:00] LABS: BG BASE EXCESS -2.2 mmol/L (-2.0-2.0); BG CARBOXYHEMOGLOBIN 0.3 % (0.5-1.5); BG DEOXYHEMOGLOBIN 7.6 % (0.0-5.0); BG FRACTION INSPIRED OXYGEN 40; BG HCO3 ACT 23.4 mmol/L (22.0-26.0); BG METHEMOGLOBIN 0.4 % (0.0-1.5); BG OXYGEN SATURATION 92.3 % (92.0-98.5); BG OXYHEMOGLOBIN 91.7 % (94.0-97.0); BG PCO2 43.6 mmHg (35.0-45.0); BG PH 7.347 (7.350-7.450); BG PO2 69.4 mmHg (75.0-100.0); BG SAMPLE SITE ALINE; BG TOTAL HEMOGLOBIN 9.7 g/dL (12.0-18.0); BG VENT MODE COOL AEROSOL
[2021-03-23 12:04] LABS: PHOSPHORUS 4.6 mg/dL (2.5-4.9)
[2021-03-23 12:22] LABS: PLATELET ESTIMATE SLIGHTLY DECREASED
[2021-03-23 12:27] LABS: PLATELET ESTIMATE SLIGHTLY DECREASED
[2021-03-23] MEDS ORDERED: FUROSEMIDE 40MG/4ML VIAL IVP ONE (13:00)
[2021-03-23] MEDS ORDERED: ALBUMIN HUMAN 12.5G/250ML (5%) IV ONE (13:00)
[2021-03-23 14:03] LABS: PLATELET ESTIMATE SLIGHTLY DECREASED
[2021-03-23 17:31] LABS: HEMATOCRIT. 27.6 % (42.0-52.0); HEMOGLOBIN. 8.9 g/dL (14.0-18.0); MEAN CORPUSCULAR HEMOGLOBIN 29.6 pg (28.0-32.0); MEAN CORPUSCULAR VOLUME 91.9 fL (80.0-94.0); MEAN PLATELET VOLUME 10.6 fl (7.4-10.4); PLATELET 114 x1000/uL (130-400); RED CELL DISTRIBUTION WIDTH 13.7 % (11.6-14.6)
[2021-03-23 18:11] LABS: BG BASE EXCESS -3.3 mmol/L (-2.0-2.0); BG DEOXYHEMOGLOBIN 12.1 % (0.0-5.0); BG FRACTION INSPIRED OXYGEN 100; BG HCO3 ACT 22.4 mmol/L (22.0-26.0); BG METHEMOGLOBIN 0.4 % (0.0-1.5); BG OXYGEN SATURATION 87.9 % (92.0-98.5); BG OXYHEMOGLOBIN 87.5 % (94.0-97.0); BG PCO2 42.8 mmHg (35.0-45.0); BG PH 7.336 (7.350-7.450); BG PO2 59.6 mmHg (75.0-100.0); BG SAMPLE SITE RIGHT RADIAL; BG TOTAL HEMOGLOBIN 9.3 g/dL (12.0-18.0); BG VENT MODE MASK - NRB
[2021-03-23] MEDS: NOREPINEPHRINE 32 MG in DEXT 5% WATER 218 ML IV PRN (18:36)
[2021-03-23] MEDS ORDERED: MORPHINE SULFATE 2 MG/ML CPJ (NOT FOR IM USE) IV NR (19:00)
[2021-03-23] MEDS: ATORVASTATIN CALCIUM 20MG TABLET PO SCH ×2 (21:28→21:47)
[2021-03-23] MEDS: DEXT 5%/0.45% NACL 1000ML 1,000 ML IV SCH (21:29)
[2021-03-23 22:16] LABS: PLATELET ESTIMATE SLIGHTLY DECREASED
[2021-03-24] VITALS (112 sets, daily range): BP systolic 77–187; BP diastolic 29–125
[2021-03-24] MEDS: IPRATROPIUM/ALBUTEROL 0.5-3(2.5)MG/3ML NEB HHN SCH ×7 (00:21→19:56)
[2021-03-24] MEDS: BLOOD SUGAR DIAGNOSTIC STRIP TEST SCH ×24 (00:21→23:00)
[2021-03-24] MEDS: DEXTROSE 50% WATER 50ML SYRINGE IV PRN ×2 (02:07→19:06)
[2021-03-24] MEDS ORDERED: INSULIN REGULAR (DRIP) 100 UNITS in SODIUM CHLORIDE 0.9% 99 ML IV SCH (03:00)
[2021-03-24] MEDS: SODIUM CHLORIDE 0.9% INJ 3ML FLUSH IVF SCH ×3 (06:00→22:49)
[2021-03-24 06:47] LABS: HEMATOCRIT. 25.3 % (42.0-52.0); HEMOGLOBIN. 8.4 g/dL (14.0-18.0); MEAN CORPUSCULAR HEMOGLOBIN 30.1 pg (28.0-32.0); MEAN CORPUSCULAR VOLUME 90.2 fL (80.0-94.0); MEAN PLATELET VOLUME 10.8 fl (7.4-10.4); PLATELET 121 x1000/uL (130-400); RED CELL DISTRIBUTION WIDTH 13.7 % (11.6-14.6)
[2021-03-24 06:59] LABS: PHOSPHORUS 4.9 mg/dL (2.5-4.9)
[2021-03-24] MEDS ORDERED: MAGNESIUM HYDROXIDE 400MG/5ML 30ML UDC PO PRN (08:30)
[2021-03-24] MEDS: ACETAMINOPHEN 325MG TABLET PO PRN (08:33)
[2021-03-24] MEDS: ASPIRIN 81MG TABLET PO SCH (08:33)
[2021-03-24] MEDS: ENOXAPARIN 30MG/0.3ML SYR SUBCUT SCH (08:33)
[2021-03-24] MEDS: FAMOTIDINE 20MG/2ML VIAL IV SCH (08:33)
[2021-03-24] MEDS: DOCUSATE SODIUM 100MG CAPSULE PO SCH ×2 (08:33→16:27)
[2021-03-24] MEDS: METOPROLOL TARTRATE 25MG TABLET PO SCH ×2 (08:34→21:00)
[2021-03-24] MEDS: HYDROCORTISONE 1% OINT 28.35GM TOP SCH ×2 (08:37→22:45)
[2021-03-24] MEDS ORDERED: MAGNESIUM HYDROXIDE 400MG/5ML 30ML UDC PO SCH (09:00)
[2021-03-24] MEDS ORDERED: ALBUMIN HUMAN 12.5G/250ML (5%) IV SCH (11:15)
[2021-03-24 11:34] LABS: BG BASE EXCESS -3.5 mmol/L (-2.0-2.0); BG CARBOXYHEMOGLOBIN 0.3 % (0.5-1.5); BG DEOXYHEMOGLOBIN 13.3 % (0.0-5.0); BG FRACTION INSPIRED OXYGEN 100; BG HCO3 ACT 21.3 mmol/L (22.0-26.0); BG METHEMOGLOBIN 0.3 % (0.0-1.5); BG OXYGEN SATURATION 86.6 % (92.0-98.5); BG OXYHEMOGLOBIN 86.1 % (94.0-97.0); BG PCO2 37.4 mmHg (35.0-45.0); BG PH 7.374 (7.350-7.450); BG SAMPLE SITE RIGHT RADIAL; BG TOTAL HEMOGLOBIN 9.9 g/dL (12.0-18.0); BG VENT MODE MASK - NRB
[2021-03-24] MEDS: LACTULOSE 20G/30ML UDC PO SCH ×2 (12:51→16:27)
[2021-03-24] MEDS: PIPERACILLIN/TAZOBACTAM 3.375 G in DEXTROSE 5% WATER 50 ML IV SCH ×2 (13:45→22:49)
[2021-03-24 16:00] LABS: PLATELET ESTIMATE SLIGHTLY DECREASED
[2021-03-24] MEDS ORDERED: LORAZEPAM 2MG/ML CPJ IV NR ×2 (16:15→19:00)
[2021-03-24] MEDS ORDERED: HALOPERIDOL LACTATE 5MG/ML VIAL IM NR (16:15)
[2021-03-24] MEDS ORDERED: ALBUMIN HUMAN 25GM/100ML (25%) IV NR (16:30)
[2021-03-24 17:03] LABS: CLARITY URINE CLOUDY (CLEAR); COLOR URINE YELLOW (YELLOW); KETONES URINE TRACE (NEGATIVE); LEUKOCYTE ESTERASE URINE TRACE (NEGATIVE); NITRITE URINE NEGATIVE (NEGATIVE); OCCULT BLOOD URINE TRACE (NEGATIVE); PROTEIN URINE 1+ (NEGATIVE); SPECIFIC GRAVITY URINE 1.023 (1.005-1.030); UROBILINOGEN URINE 0.2 E.U./dL (0.2-1.0)
[2021-03-24] MEDS: DOPAMINE 400MG/250ML PREMIX 250 ML IV PRN (17:16)
[2021-03-24] MEDS: DEXT 5%/0.45% NACL 1000ML 1,000 ML IV SCH (17:16)
[2021-03-24 18:12] LABS: BG BASE EXCESS -3.8 mmol/L (-2.0-2.0); BG CARBOXYHEMOGLOBIN 0.3 % (0.5-1.5); BG DEOXYHEMOGLOBIN 10.3 % (0.0-5.0); BG FRACTION INSPIRED OXYGEN 100; BG HCO3 ACT 21.9 mmol/L (22.0-26.0); BG METHEMOGLOBIN 0.3 % (0.0-1.5); BG OXYGEN SATURATION 89.6 % (92.0-98.5); BG OXYHEMOGLOBIN 89.1 % (94.0-97.0); BG PCO2 42.6 mmHg (35.0-45.0); BG PH 7.329 (7.350-7.450); BG PO2 64.6 mmHg (75.0-100.0); BG SAMPLE SITE LEFT BRACHIAL; BG TOTAL HEMOGLOBIN 8.8 g/dL (12.0-18.0)
[2021-03-24 18:19] LABS: HEMATOCRIT. 23.5 % (42.0-52.0); HEMOGLOBIN. 7.5 g/dL (14.0-18.0); MEAN CORPUSCULAR HEMOGLOBIN 29.6 pg (28.0-32.0); MEAN CORPUSCULAR VOLUME 92.8 fL (80.0-94.0); MEAN PLATELET VOLUME 10.5 fl (7.4-10.4); PLATELET 135 x1000/uL (130-400); RED BLOOD CELL COUNT 2.54 mill/uL (4.7-6.1)
[2021-03-24 19:59] LABS: PLATELET ESTIMATE NORMAL
[2021-03-24] MEDS ORDERED: FUROSEMIDE 40MG/4ML VIAL IVP NR (21:30)
[2021-03-25] VITALS (96 sets, daily range): BP systolic 82–184; BP diastolic 41–125
[2021-03-25] MEDS: BLOOD SUGAR DIAGNOSTIC STRIP TEST SCH ×24 (01:34→23:00)
[2021-03-25] MEDS: NOREPINEPHRINE 32 MG in DEXT 5% WATER 218 ML IV PRN (01:51)
[2021-03-25] MEDS: LACTULOSE 20G/30ML UDC PO SCH ×4 (01:52→18:01)
[2021-03-25] MEDS: IPRATROPIUM/ALBUTEROL 0.5-3(2.5)MG/3ML NEB HHN SCH ×5 (01:59→20:58)
[2021-03-25] MEDS: DEXTROSE 50% WATER 50ML SYRINGE IV PRN ×3 (04:17→18:52)
[2021-03-25 06:04] LABS: HEMATOCRIT. 27.3 % (42.0-52.0); HEMOGLOBIN. 8.9 g/dL (14.0-18.0); MEAN CORPUSCULAR HEMOGLOBIN 29.3 pg (28.0-32.0); MEAN CORPUSCULAR VOLUME 89.6 fL (80.0-94.0); MEAN PLATELET VOLUME 10.3 fl (7.4-10.4); PLATELET 143 x1000/uL (130-400); RED BLOOD CELL COUNT 3.05 mill/uL (4.7-6.1); RED CELL DISTRIBUTION WIDTH 15.2 % (11.6-14.6)
[2021-03-25] MEDS: PIPERACILLIN/TAZOBACTAM 3.375 G in DEXTROSE 5% WATER 50 ML IV SCH ×3 (06:17→22:59)
[2021-03-25] MEDS: SODIUM CHLORIDE 0.9% INJ 3ML FLUSH IVF SCH ×3 (06:17→22:34)
[2021-03-25] MEDS ORDERED: ALBUMIN HUMAN 25GM/100ML (25%) IV SCH (06:30)
[2021-03-25 08:07] LABS: BG BASE EXCESS -0.8 mmol/L (-2.0-2.0); BG CARBOXYHEMOGLOBIN 0.3 % (0.5-1.5); BG DEOXYHEMOGLOBIN 9.8 % (0.0-5.0); BG FRACTION INSPIRED OXYGEN 100; BG HCO3 ACT 24.1 mmol/L (22.0-26.0); BG METHEMOGLOBIN 0.3 % (0.0-1.5); BG OXYGEN SATURATION 90.1 % (92.0-98.5); BG OXYHEMOGLOBIN 89.6 % (94.0-97.0); BG PCO2 40.6 mmHg (35.0-45.0); BG PH 7.391 (7.350-7.450); BG PO2 64.3 mmHg (75.0-100.0); BG SAMPLE SITE RIGHT RADIAL; BG VENT MODE MASK - NRB
[2021-03-25] MEDS: FAMOTIDINE 20MG/2ML VIAL IV SCH (08:34)
[2021-03-25] MEDS: ASPIRIN 81MG TABLET PO SCH (08:34)
[2021-03-25] MEDS: DOCUSATE SODIUM SUGAR FREE 100MG/10ML UDC NG SCH ×2 (08:34→18:01)
[2021-03-25] MEDS: ENOXAPARIN 30MG/0.3ML SYR SUBCUT SCH (08:34)
[2021-03-25] MEDS: METOPROLOL TARTRATE 25MG TABLET PO SCH ×2 (08:35→21:47)
[2021-03-25] MEDS: ACETAMINOPHEN 325MG TABLET PO PRN ×2 (08:35→23:40)
[2021-03-25] MEDS: HYDROCORTISONE 1% OINT 28.35GM TOP SCH ×2 (08:36→21:48)
[2021-03-25] MEDS ORDERED: DEXTROSE 5% WATER 1,000 ML IV SCH (11:00)
[2021-03-25] MEDS ORDERED: VANCOMYCIN 1 G PREMIX 200 ML IV SCH (11:00)
[2021-03-25] MEDS ORDERED: FUROSEMIDE 40MG/4ML VIAL IVP NR (11:00)
[2021-03-25] MEDS ORDERED: FENTANYL CITRATE/PF 50MCG/ML 2ML VIAL IV NR ×2 (11:45→13:30)
[2021-03-25] MEDS: MIDAZOLAM HCL 2 MG/2 ML VIAL IV NR ×2 (11:52→14:50)
[2021-03-25] MEDS ORDERED: VANCOMYCIN 1500MG in DEXTROSE 5% WATER 250ML IV NR (13:00)
[2021-03-25 13:28] LABS: PLATELET ESTIMATE NORMAL
[2021-03-25] MEDS ORDERED: AMIODARONE HCL 900 MG in DEXT 5% WATER 482 ML IV PRN (13:30)
[2021-03-25] MEDS ORDERED: MIDAZOLAM HCL 5 MG/5 ML VIAL IV NR (13:30)
[2021-03-25] MEDS ORDERED: AMIODARONE HCL 50MG/ML 3ML VIAL IV ONE (13:30)
[2021-03-25] MEDS ORDERED: AMIODARONE HCL 150 MG in DEXT 5% WATER 100 ML IV NR (13:30)
[2021-03-25] MEDS ORDERED: MIDAZOLAM HCL 2 MG/2 ML VIAL IV NR (14:42)
[2021-03-25 17:57] LABS: HEMATOCRIT. 27.8 % (42.0-52.0); MEAN CORPUSCULAR HEMOGLOBIN 29.4 pg (28.0-32.0); MEAN CORPUSCULAR VOLUME 90.2 fL (80.0-94.0); PLATELET 136 x1000/uL (130-400); RED BLOOD CELL COUNT 3.08 mill/uL (4.7-6.1); RED CELL DISTRIBUTION WIDTH 15.1 % (11.6-14.6)
[2021-03-25 17:59] LABS: BG BASE EXCESS -0.3 mmol/L (-2.0-2.0); BG CARBOXYHEMOGLOBIN 0.3 % (0.5-1.5); BG FRACTION INSPIRED OXYGEN 100; BG HCO3 ACT 24.7 mmol/L (22.0-26.0); BG METHEMOGLOBIN 0.1 % (0.0-1.5); BG OXYHEMOGLOBIN 90.6 % (94.0-97.0); BG PCO2 41.8 mmHg (35.0-45.0); BG PH 7.389 (7.350-7.450); BG PO2 66.6 mmHg (75.0-100.0); BG SAMPLE SITE RIGHT RADIAL; BG TOTAL HEMOGLOBIN 10.2 g/dL (12.0-18.0); BG VENT MODE HIGH FLOW
[2021-03-25 19:00] LABS: PLATELET ESTIMATE NORMAL
[2021-03-25] MEDS ORDERED: MIDAZOLAM HCL 2 MG/2 ML VIAL IV SCH (19:30)
[2021-03-25] MEDS ORDERED: HALOPERIDOL LACTATE 5MG/ML VIAL IM SCH (19:30)
[2021-03-25] MEDS ORDERED: FENTANYL CITRATE/PF 50MCG/ML 2ML VIAL IV SCH (19:30)
[2021-03-25 21:19] LABS: PHOSPHORUS 2.4 mg/dL (2.5-4.9)
[2021-03-25] MEDS: ATORVASTATIN CALCIUM 20MG TABLET PO SCH (21:47)
[2021-03-25] MEDS ORDERED: KCL 20MEQ/100ML PREMIX 100 ML IV NR (22:00)
[2021-03-26] VITALS (63 sets, daily range): BP systolic 74–171; BP diastolic 36–85
[2021-03-26] MEDS: BLOOD SUGAR DIAGNOSTIC STRIP TEST SCH ×10 (00:46→18:02)
[2021-03-26] MEDS: IPRATROPIUM/ALBUTEROL 0.5-3(2.5)MG/3ML NEB HHN SCH ×5 (01:01→21:11)
[2021-03-26 03:06] LABS: BG BASE EXCESS -3.2 mmol/L (-2.0-2.0); BG CARBOXYHEMOGLOBIN 0.3 % (0.5-1.5); BG FRACTION INSPIRED OXYGEN 100; BG OXYHEMOGLOBIN 85.7 % (94.0-97.0); BG PCO2 34.5 mmHg (35.0-45.0); BG PH 7.403 (7.350-7.450); BG PO2 54.7 mmHg (75.0-100.0); BG SAMPLE SITE LEFT BRACHIAL; BG TOTAL HEMOGLOBIN 10.3 g/dL (12.0-18.0); BG VENT MODE MASK - NRB
[2021-03-26] MEDS ORDERED: MIDAZOLAM 100MG/100ML PMX 100 ML IV PRN (03:45)
[2021-03-26] MEDS: FENTANYL CITRATE/PF 2,500 MCG in SODIUM CHLORIDE 0.9% 200 ML IV PRN (04:03)
[2021-03-26] MEDS: MIDAZOLAM HCL 100 MG in SODIUM CHLORIDE 0.9% 100 ML IV PRN ×2 (04:03→16:49)
[2021-03-26 04:20] LABS: BG BASE EXCESS -5.7 mmol/L (-2.0-2.0); BG CARBOXYHEMOGLOBIN 0.3 % (0.5-1.5); BG DEOXYHEMOGLOBIN 25.8 % (0.0-5.0); BG FRACTION INSPIRED OXYGEN 100; BG HCO3 ACT 20.1 mmol/L (22.0-26.0); BG METHEMOGLOBIN 0.2 % (0.0-1.5); BG OXYGEN SATURATION 74.1 % (92.0-98.5); BG OXYHEMOGLOBIN 73.7 % (94.0-97.0); BG PH 7.309 (7.350-7.450); BG PO2 47.3 mmHg (75.0-100.0); BG SAMPLE SITE RIGHT RADIAL; BG TOTAL HEMOGLOBIN 10.3 g/dL (12.0-18.0); BG VENT MODE VENT - AC
[2021-03-26 05:55] LABS: BG BASE EXCESS -5.3 mmol/L (-2.0-2.0); BG CARBOXYHEMOGLOBIN 0.3 % (0.5-1.5); BG FRACTION INSPIRED OXYGEN 100; BG HCO3 ACT 20.2 mmol/L (22.0-26.0); BG METHEMOGLOBIN 0.2 % (0.0-1.5); BG OXYGEN SATURATION 79.9 % (92.0-98.5); BG OXYHEMOGLOBIN 79.5 % (94.0-97.0); BG PCO2 39.3 mmHg (35.0-45.0); BG PH 7.328 (7.350-7.450); BG PO2 50.8 mmHg (75.0-100.0); BG SAMPLE SITE RIGHT RADIAL; BG TOTAL HEMOGLOBIN 12.5 g/dL (12.0-18.0); BG VENT MODE VENT - AC
[2021-03-26] MEDS: SODIUM CHLORIDE 0.9% INJ 3ML FLUSH IVF SCH ×3 (06:00→21:16)
[2021-03-26 06:20] LABS: HEMATOCRIT. 27.9 % (42.0-52.0); HEMOGLOBIN. 9.2 g/dL (14.0-18.0); MEAN CORPUSCULAR HEMOGLOBIN 29.6 pg (28.0-32.0); MEAN PLATELET VOLUME 9.9 fl (7.4-10.4); PLATELET 193 x1000/uL (130-400); RED CELL DISTRIBUTION WIDTH 14.9 % (11.6-14.6)
[2021-03-26] MEDS: LACTULOSE 20G/30ML UDC PO SCH ×4 (07:04→18:03)
[2021-03-26] MEDS: PIPERACILLIN/TAZOBACTAM 3.375 G in DEXTROSE 5% WATER 50 ML IV SCH ×3 (07:04→21:14)
[2021-03-26] MEDS: DOPAMINE 400MG/250ML PREMIX 250 ML IV PRN (07:26)
[2021-03-26] MEDS ORDERED: SODIUM BICARBONATE 8.4% 1 MEQ/ML 50ML SYR IV NR ×2 (07:45→14:02)
[2021-03-26] MEDS ORDERED: DEXTROSE 50% WATER 50ML SYRINGE IV PRN (08:30)
[2021-03-26] MEDS: DOCUSATE SODIUM SUGAR FREE 100MG/10ML UDC NG SCH ×2 (09:00→17:00)
[2021-03-26] MEDS: FAMOTIDINE 20MG/2ML VIAL IV SCH (09:00)
[2021-03-26] MEDS: HYDROCORTISONE 1% OINT 28.35GM TOP SCH ×2 (09:00→21:15)
[2021-03-26] MEDS: ASPIRIN 81MG TABLET PO SCH (09:00)
[2021-03-26] MEDS: ENOXAPARIN 30MG/0.3ML SYR SUBCUT SCH (09:00)
[2021-03-26] MEDS ORDERED: FUROSEMIDE 40MG/4ML VIAL IVP NR (09:00)
[2021-03-26] MEDS: METOPROLOL TARTRATE 25MG TABLET PO SCH ×2 (09:00→21:00)
[2021-03-26 09:08] LABS: BG BASE EXCESS -2.6 mmol/L (-2.0-2.0); BG CARBOXYHEMOGLOBIN 0.3 % (0.5-1.5); BG DEOXYHEMOGLOBIN 8.7 % (0.0-5.0); BG FRACTION INSPIRED OXYGEN 100; BG HCO3 ACT 22.1 mmol/L (22.0-26.0); BG METHEMOGLOBIN 0.1 % (0.0-1.5); BG OXYGEN SATURATION 91.3 % (92.0-98.5); BG OXYHEMOGLOBIN 90.9 % (94.0-97.0); BG PCO2 37.4 mmHg (35.0-45.0); BG PH 7.389 (7.350-7.450); BG PO2 68.5 mmHg (75.0-100.0); BG SAMPLE SITE RIGHT RADIAL; BG TOTAL HEMOGLOBIN 9.6 g/dL (12.0-18.0); BG VENT MODE VENT - AC
[2021-03-26] MEDS ORDERED: BUMETANIDE 1MG/4ML VIAL IV SCH (09:15)
[2021-03-26] MEDS ORDERED: BUMETANIDE 1MG/4ML VIAL IV NR (09:30)
[2021-03-26] MEDS: DEXT 5%/0.45% NACL 1000ML 1,000 ML IV SCH (09:44)
[2021-03-26] MEDS ORDERED: BUMETANIDE IV SCH (10:30)
[2021-03-26] MEDS ORDERED: WATER IV SCH (10:30)
[2021-03-26] MEDS ORDERED: DEXT 5% IV SCH (10:30)
[2021-03-26] MEDS ORDERED: ALBUMIN HUMAN 12.5GM/50ML (25%) IV NR (11:00)
[2021-03-26] MEDS: INSULIN LISPRO 100 UNITS/ML SUBCUT SCH ×2 (12:00→18:00)
[2021-03-26 12:10] LABS: PHOSPHORUS 4.1 mg/dL (2.5-4.9)
[2021-03-26] MEDS ORDERED: INSULIN REGULAR (HUMULIN R) 300UNITS/3ML VIAL IV NR (14:02)
[2021-03-26] MEDS ORDERED: DEXTROSE 50% WATER 50ML SYRINGE IV NR (14:02)
[2021-03-26] MEDS ORDERED: SODIUM POLYSTYRENE SULFONATE 15 G/60 ML BOT PO NR (14:15)
[2021-03-26] MEDS: NOREPINEPHRINE 32 MG in DEXT 5% WATER 218 ML IV PRN (16:50)
[2021-03-26 17:14] LABS: HEMATOCRIT 26.2 % (42.0-52.0); HEMOGLOBIN 8.7 g/dL (14.0-18.0); MEAN CORPUSCULAR HEMOGLOBIN 29.9 pg (28.0-32.0); MEAN CORPUSCULAR VOLUME 89.5 fL (80.0-94.0); PLATELET 181 x1000/uL (130-400); RED BLOOD CELL COUNT 2.92 mill/uL (4.7-6.1); RED CELL DISTRIBUTION WIDTH 15.1 % (11.6-14.6)
[2021-03-26 17:57] LABS: BG BASE EXCESS -2.7 mmol/L (-2.0-2.0); BG CARBOXYHEMOGLOBIN 0.3 % (0.5-1.5); BG DEOXYHEMOGLOBIN 4.9 % (0.0-5.0); BG FRACTION INSPIRED OXYGEN 100; BG HCO3 ACT 22.7 mmol/L (22.0-26.0); BG METHEMOGLOBIN 0.2 % (0.0-1.5); BG OXYGEN SATURATION 95.1 % (92.0-98.5); BG OXYHEMOGLOBIN 94.6 % (94.0-97.0); BG PCO2 42.2 mmHg (35.0-45.0); BG PH 7.349 (7.350-7.450); BG PO2 93.6 mmHg (75.0-100.0); BG SAMPLE SITE RIGHT RADIAL; BG TOTAL HEMOGLOBIN 8.9 g/dL (12.0-18.0); BG VENT MODE VENT - AC
[2021-03-26 18:11] LABS: PLATELET ESTIMATE NORMAL
[2021-03-26] MEDS ORDERED: ALBUMIN HUMAN 25GM/500ML (5%) IV NR (18:30)
[2021-03-26] MEDS: ATORVASTATIN CALCIUM 20MG TABLET PO SCH (21:15)
[2021-03-26 22:11] LABS: BG BASE EXCESS 0.7 mmol/L (-2.0-2.0); BG CARBOXYHEMOGLOBIN 0.3 % (0.5-1.5); BG DEOXYHEMOGLOBIN 7.8 % (0.0-5.0); BG FRACTION INSPIRED OXYGEN 90; BG HCO3 ACT 27.3 mmol/L (22.0-26.0); BG METHEMOGLOBIN 0.2 % (0.0-1.5); BG OXYGEN SATURATION 92.2 % (92.0-98.5); BG OXYHEMOGLOBIN 91.7 % (94.0-97.0); BG PCO2 54.4 mmHg (35.0-45.0); BG PH 7.319 (7.350-7.450); BG SAMPLE SITE LEFT RADIAL; BG TOTAL HEMOGLOBIN 9.8 g/dL (12.0-18.0); BG VENT MODE VENT - AC
[2021-03-27] VITALS (89 sets, daily range): BP systolic 98–173; BP diastolic 48–103
[2021-03-27] MEDS: LACTULOSE 20G/30ML UDC PO SCH ×4 (01:35→17:14)
[2021-03-27] MEDS: IPRATROPIUM/ALBUTEROL 0.5-3(2.5)MG/3ML NEB HHN SCH ×5 (01:40→20:34)
[2021-03-27 02:06] LABS: BG BASE EXCESS 0.9 mmol/L (-2.0-2.0); BG CARBOXYHEMOGLOBIN 0.3 % (0.5-1.5); BG DEOXYHEMOGLOBIN 9.2 % (0.0-5.0); BG FRACTION INSPIRED OXYGEN 90; BG HCO3 ACT 26.8 mmol/L (22.0-26.0); BG METHEMOGLOBIN 0.2 % (0.0-1.5); BG OXYGEN SATURATION 90.8 % (92.0-98.5); BG OXYHEMOGLOBIN 90.3 % (94.0-97.0); BG PH 7.356 (7.350-7.450); BG PO2 68.9 mmHg (75.0-100.0); BG SAMPLE SITE LEFT RADIAL; BG TOTAL HEMOGLOBIN 9.9 g/dL (12.0-18.0); BG VENT MODE VENT - AC
[2021-03-27] MEDS: INSULIN LISPRO 100 UNITS/ML SUBCUT SCH ×4 (06:00→17:14)
[2021-03-27] MEDS: SODIUM CHLORIDE 0.9% INJ 3ML FLUSH IVF SCH ×3 (06:09→21:21)
[2021-03-27] MEDS: BLOOD SUGAR DIAGNOSTIC STRIP TEST SCH ×4 (06:09→17:15)
[2021-03-27] MEDS: MIDAZOLAM HCL 100 MG in SODIUM CHLORIDE 0.9% 100 ML IV PRN (06:11)
[2021-03-27 06:24] LABS: HEMATOCRIT. 27.7 % (42.0-52.0); HEMOGLOBIN. 9.4 g/dL (14.0-18.0); MEAN CORPUSCULAR HEMOGLOBIN 29.9 pg (28.0-32.0); MEAN CORPUSCULAR VOLUME 88.4 fL (80.0-94.0); MEAN PLATELET VOLUME 9.6 fl (7.4-10.4); PLATELET 180 x1000/uL (130-400); RED BLOOD CELL COUNT 3.14 mill/uL (4.7-6.1); RED CELL DISTRIBUTION WIDTH 14.7 % (11.6-14.6)
[2021-03-27] MEDS: ACETAMINOPHEN 325MG TABLET PO PRN (07:48)
[2021-03-27] MEDS: DOCUSATE SODIUM SUGAR FREE 100MG/10ML UDC NG SCH ×2 (08:03→17:14)
[2021-03-27] MEDS: ENOXAPARIN 30MG/0.3ML SYR SUBCUT SCH (08:03)
[2021-03-27] MEDS: FAMOTIDINE 20MG/2ML VIAL IV SCH (08:03)
[2021-03-27] MEDS: ASPIRIN 81MG TABLET PO SCH (08:03)
[2021-03-27] MEDS: METOPROLOL TARTRATE 25MG TABLET PO SCH ×2 (08:04→21:00)
[2021-03-27] MEDS: PIPERACILLIN/TAZOBACTAM 3.375 G in DEXTROSE 5% WATER 50 ML IV SCH ×2 (08:10→21:19)
[2021-03-27] MEDS: HYDROCORTISONE 1% OINT 28.35GM TOP SCH ×2 (08:10→21:19)
[2021-03-27 08:14] LABS: BG BASE EXCESS 1.4 mmol/L (-2.0-2.0); BG CARBOXYHEMOGLOBIN 0.3 % (0.5-1.5); BG DEOXYHEMOGLOBIN 12.1 % (0.0-5.0); BG FRACTION INSPIRED OXYGEN 90; BG HCO3 ACT 26.3 mmol/L (22.0-26.0); BG METHEMOGLOBIN 0.2 % (0.0-1.5); BG OXYGEN SATURATION 87.8 % (92.0-98.5); BG OXYHEMOGLOBIN 87.4 % (94.0-97.0); BG PCO2 42.9 mmHg (35.0-45.0); BG PH 7.406 (7.350-7.450); BG PO2 57.7 mmHg (75.0-100.0); BG SAMPLE SITE LEFT RADIAL; BG TOTAL HEMOGLOBIN 9.8 g/dL (12.0-18.0); BG TOTAL RESPIRATORY RATE 23 b/min; BG VENT MODE VENT - AC
[2021-03-27 12:05] LABS: BG BASE EXCESS 1.8 mmol/L (-2.0-2.0); BG CARBOXYHEMOGLOBIN 0.3 % (0.5-1.5); BG DEOXYHEMOGLOBIN 4.9 % (0.0-5.0); BG FRACTION INSPIRED OXYGEN 100; BG HCO3 ACT 26.4 mmol/L (22.0-26.0); BG METHEMOGLOBIN 0.1 % (0.0-1.5); BG OXYGEN SATURATION 95.1 % (92.0-98.5); BG OXYHEMOGLOBIN 94.7 % (94.0-97.0); BG PCO2 41.5 mmHg (35.0-45.0); BG PH 7.422 (7.350-7.450); BG PO2 84.1 mmHg (75.0-100.0); BG SAMPLE SITE RIGHT RADIAL; BG TOTAL HEMOGLOBIN 10.4 g/dL (12.0-18.0); BG TOTAL RESPIRATORY RATE 20 b/min; BG VENT MODE VENT - AC
[2021-03-27] MEDS: DOPAMINE 800MG PREMIX (DOUBLE) 250 ML IV PRN (13:05)
[2021-03-27] MEDS: DEXT 5%/0.45% NACL 1000ML 1,000 ML IV SCH (14:27)
[2021-03-27 15:26] LABS: BG BASE EXCESS 4.1 mmol/L (-2.0-2.0); BG CARBOXYHEMOGLOBIN 0.2 % (0.5-1.5); BG DEOXYHEMOGLOBIN 3.9 % (0.0-5.0); BG FRACTION INSPIRED OXYGEN 95; BG HCO3 ACT 28.8 mmol/L (22.0-26.0); BG METHEMOGLOBIN 0.2 % (0.0-1.5); BG OXYGEN SATURATION 96.1 % (92.0-98.5); BG OXYHEMOGLOBIN 95.7 % (94.0-97.0); BG PCO2 43.9 mmHg (35.0-45.0); BG PH 7.435 (7.350-7.450); BG PO2 92.4 mmHg (75.0-100.0); BG SAMPLE SITE RIGHT RADIAL; BG TOTAL HEMOGLOBIN 10.2 g/dL (12.0-18.0); BG TOTAL RESPIRATORY RATE 19 b/min; BG VENT MODE VENT - AC
[2021-03-27] MEDS ORDERED: ALBUMIN HUMAN 12.5G/250ML (5%) IV NR (16:15)
[2021-03-27] MEDS ORDERED: ALBUMIN HUMAN 12.5GM/50ML (25%) IV NR (16:45)
[2021-03-27 17:07] LABS: NUCLEATED RED BLOOD CELLS 1 /100 WBC; PLATELET ESTIMATE NORMAL
[2021-03-27] MEDS: AMIODARONE HCL 200 MG TABLET PO SCH (17:15)
[2021-03-27 17:33] LABS: BG BASE EXCESS 3.6 mmol/L (-2.0-2.0); BG CARBOXYHEMOGLOBIN 0.2 % (0.5-1.5); BG DEOXYHEMOGLOBIN 5.2 % (0.0-5.0); BG HCO3 ACT 27.8 mmol/L (22.0-26.0); BG METHEMOGLOBIN 0.1 % (0.0-1.5); BG OXYGEN SATURATION 94.8 % (92.0-98.5); BG OXYHEMOGLOBIN 94.5 % (94.0-97.0); BG PCO2 40.8 mmHg (35.0-45.0); BG PH 7.452 (7.350-7.450); BG PO2 81.8 mmHg (75.0-100.0); BG SAMPLE SITE RIGHT RADIAL; BG TOTAL HEMOGLOBIN 10.6 g/dL (12.0-18.0); BG VENT MODE VENT - AC
[2021-03-27 20:00] LABS: BG CARBOXYHEMOGLOBIN 0.3 % (0.5-1.5); BG DEOXYHEMOGLOBIN 5.6 % (0.0-5.0); BG FRACTION INSPIRED OXYGEN 80; BG HCO3 ACT 29.1 mmol/L (22.0-26.0); BG METHEMOGLOBIN 0.2 % (0.0-1.5); BG OXYGEN SATURATION 94.4 % (92.0-98.5); BG OXYHEMOGLOBIN 93.9 % (94.0-97.0); BG PCO2 40.8 mmHg (35.0-45.0); BG PH 7.471 (7.350-7.450); BG PO2 74.6 mmHg (75.0-100.0); BG SAMPLE SITE RIGHT RADIAL; BG TOTAL HEMOGLOBIN 10.3 g/dL (12.0-18.0); BG VENT MODE VENT - AC
[2021-03-27] MEDS: NOREPINEPHRINE 32 MG in DEXT 5% WATER 218 ML IV PRN (20:29)
[2021-03-27] MEDS: ATORVASTATIN CALCIUM 20MG TABLET PO SCH (21:18)
[2021-03-28] VITALS (98 sets, daily range): BP systolic 83–200; BP diastolic 48–116
[2021-03-28] MEDS: BLOOD SUGAR DIAGNOSTIC STRIP TEST SCH ×4 (00:15→17:50)
[2021-03-28] MEDS: LACTULOSE 20G/30ML UDC PO SCH ×4 (00:16→17:50)
[2021-03-28 00:43] LABS: BG BASE EXCESS 5.6 mmol/L (-2.0-2.0); BG CARBOXYHEMOGLOBIN 0.2 % (0.5-1.5); BG DEOXYHEMOGLOBIN 2.3 % (0.0-5.0); BG FRACTION INSPIRED OXYGEN 80; BG HCO3 ACT 27.9 mmol/L (22.0-26.0); BG METHEMOGLOBIN 0.2 % (0.0-1.5); BG OXYGEN SATURATION 97.7 % (92.0-98.5); BG OXYHEMOGLOBIN 97.3 % (94.0-97.0); BG PCO2 32.4 mmHg (35.0-45.0); BG PH 7.553 (7.350-7.450); BG PO2 106.3 mmHg (75.0-100.0); BG SAMPLE SITE RIGHT RADIAL; BG TOTAL HEMOGLOBIN 10.1 g/dL (12.0-18.0); BG VENT MODE VENT - AC
[2021-03-28] MEDS: IPRATROPIUM/ALBUTEROL 0.5-3(2.5)MG/3ML NEB HHN SCH ×6 (00:51→21:17)
[2021-03-28] MEDS: FENTANYL CITRATE/PF 2,500 MCG in SODIUM CHLORIDE 0.9% 200 ML IV PRN (01:25)
[2021-03-28] MEDS: INSULIN LISPRO 100 UNITS/ML SUBCUT SCH ×4 (06:00→17:52)
[2021-03-28 06:06] LABS: HEMATOCRIT. 30.7 % (42.0-52.0); HEMOGLOBIN. 10.1 g/dL (14.0-18.0); MEAN CORPUSCULAR HEMOGLOBIN 29.3 pg (28.0-32.0); MEAN CORPUSCULAR VOLUME 88.9 fL (80.0-94.0); MEAN PLATELET VOLUME 9.8 fl (7.4-10.4); PLATELET 191 x1000/uL (130-400); RED BLOOD CELL COUNT 3.45 mill/uL (4.7-6.1)
[2021-03-28] MEDS: SODIUM CHLORIDE 0.9% INJ 3ML FLUSH IVF SCH ×3 (06:11→21:42)
[2021-03-28] MEDS: MIDAZOLAM HCL 100 MG in SODIUM CHLORIDE 0.9% 100 ML IV PRN (07:07)
[2021-03-28 08:28] LABS: BG BASE EXCESS -1.9 mmol/L (-2.0-2.0); BG CARBOXYHEMOGLOBIN 0.3 % (0.5-1.5); BG DEOXYHEMOGLOBIN 14.3 % (0.0-5.0); BG FRACTION INSPIRED OXYGEN 70; BG HCO3 ACT 23.1 mmol/L (22.0-26.0); BG METHEMOGLOBIN 0.2 % (0.0-1.5); BG OXYGEN SATURATION 85.6 % (92.0-98.5); BG OXYHEMOGLOBIN 85.2 % (94.0-97.0); BG PCO2 40.4 mmHg (35.0-45.0); BG PH 7.376 (7.350-7.450); BG PO2 57.2 mmHg (75.0-100.0); BG SAMPLE SITE RIGHT RADIAL; BG TOTAL HEMOGLOBIN 10.8 g/dL (12.0-18.0); BG VENT MODE VENT - AC/VC
[2021-03-28] MEDS: DOCUSATE SODIUM SUGAR FREE 100MG/10ML UDC NG SCH ×2 (08:38→17:50)
[2021-03-28] MEDS: ENOXAPARIN 30MG/0.3ML SYR SUBCUT SCH (08:38)
[2021-03-28] MEDS: PIPERACILLIN/TAZOBACTAM 3.375 G in DEXTROSE 5% WATER 50 ML IV SCH ×2 (08:38→20:54)
[2021-03-28] MEDS: ASPIRIN 81MG TABLET PO SCH (08:38)
[2021-03-28] MEDS: FAMOTIDINE 20MG/2ML VIAL IV SCH (08:38)
[2021-03-28] MEDS: AMIODARONE HCL 200 MG TABLET PO SCH ×2 (08:39→17:50)
[2021-03-28] MEDS: METOPROLOL TARTRATE 25MG TABLET PO SCH ×2 (08:39→21:00)
[2021-03-28] MEDS: DEXT 5%/0.45% NACL 1000ML 1,000 ML IV SCH (08:40)
[2021-03-28] MEDS: HYDROCORTISONE 1% OINT 28.35GM TOP SCH ×2 (08:40→21:41)
[2021-03-28] MEDS: ACETAMINOPHEN 325MG TABLET PO PRN (09:00)
[2021-03-28] MEDS ORDERED: KCL 10MEQ/50ML PREMIX 50 ML IV SCH (09:00)
[2021-03-28] MEDS ORDERED: KCL 20MEQ/100ML PREMIX 100 ML IV SCH (10:00)
[2021-03-28 10:07] LABS: BG BASE EXCESS -3.5 mmol/L (-2.0-2.0); BG CARBOXYHEMOGLOBIN 0.2 % (0.5-1.5); BG DEOXYHEMOGLOBIN 10.9 % (0.0-5.0); BG FRACTION INSPIRED OXYGEN 60; BG HCO3 ACT 20.3 mmol/L (22.0-26.0); BG METHEMOGLOBIN 0.2 % (0.0-1.5); BG OXYGEN SATURATION 89.1 % (92.0-98.5); BG OXYHEMOGLOBIN 88.7 % (94.0-97.0); BG PCO2 32.6 mmHg (35.0-45.0); BG PH 7.413 (7.350-7.450); BG PO2 62.9 mmHg (75.0-100.0); BG SAMPLE SITE RIGHT RADIAL; BG TOTAL HEMOGLOBIN 10.6 g/dL (12.0-18.0); BG VENT MODE VENT - AC
[2021-03-28] MEDS ORDERED: ALBUMIN HUMAN 25GM/100ML (25%) IV SCH (11:45)
[2021-03-28] MEDS ORDERED: SODIUM BICARBONATE 8.4% 1 MEQ/ML 50ML SYR IV SCH (12:00)
[2021-03-28 13:28] LABS: BG BASE EXCESS 5.5 mmol/L (-2.0-2.0); BG CARBOXYHEMOGLOBIN 0.3 % (0.5-1.5); BG DEOXYHEMOGLOBIN 27.2 % (0.0-5.0); BG FRACTION INSPIRED OXYGEN 100; BG HCO3 ACT 31.1 mmol/L (22.0-26.0); BG METHEMOGLOBIN 0.3 % (0.0-1.5); BG OXYGEN SATURATION 72.6 % (92.0-98.5); BG OXYHEMOGLOBIN 72.2 % (94.0-97.0); BG PCO2 50.7 mmHg (35.0-45.0); BG PH 7.406 (7.350-7.450); BG PO2 41.6 mmHg (75.0-100.0); BG SAMPLE SITE RIGHT RADIAL; BG TOTAL HEMOGLOBIN 10.3 g/dL (12.0-18.0); BG TOTAL RESPIRATORY RATE 20 b/min; BG VENT MODE VENT - AC
[2021-03-28] MEDS ORDERED: ALBUMIN HUMAN 25GM/100ML (25%) IV NR (13:45)
[2021-03-28] MEDS ORDERED: FUROSEMIDE 40MG/4ML VIAL IVP SCH (14:00)
[2021-03-28] MEDS ORDERED: FENTANYL CITRATE/PF 50MCG/ML 2ML VIAL IV PRN (16:30)
[2021-03-28 16:34] LABS: BG BASE EXCESS 6.1 mmol/L (-2.0-2.0); BG CARBOXYHEMOGLOBIN 0.3 % (0.5-1.5); BG DEOXYHEMOGLOBIN 11.5 % (0.0-5.0); BG FRACTION INSPIRED OXYGEN 90; BG HCO3 ACT 31.4 mmol/L (22.0-26.0); BG METHEMOGLOBIN 0.2 % (0.0-1.5); BG OXYGEN SATURATION 88.4 % (92.0-98.5); BG PCO2 49.1 mmHg (35.0-45.0); BG PH 7.424 (7.350-7.450); BG PO2 58.8 mmHg (75.0-100.0); BG SAMPLE SITE RIGHT RADIAL; BG TOTAL HEMOGLOBIN 10.1 g/dL (12.0-18.0); BG TOTAL RESPIRATORY RATE 15 b/min; BG VENT MODE VENT - AC
[2021-03-28 17:23] LABS: NUCLEATED RED BLOOD CELLS 3 /100 WBC
[2021-03-28 17:24] LABS: PLATELET ESTIMATE NORMAL
[2021-03-28] MEDS ORDERED: [UNRECOGNIZED DRUG - OTHER] SCH (19:30)
[2021-03-28] MEDS ORDERED: SODIUM CHLORIDE 0.9% SCH (19:30)
[2021-03-28] MEDS ORDERED: FUROSEMIDE 40MG/4ML VIAL IVP NR (20:00)
[2021-03-28] MEDS ORDERED: FUROSEMIDE 100MG/10ML VIAL ONE (20:53)
[2021-03-28] MEDS ORDERED: FUROSEMIDE 100 MG in DEXT 5% WATER 90 ML IV SCH (21:00)
[2021-03-28] MEDS: ATORVASTATIN CALCIUM 20MG TABLET PO SCH (21:40)
[2021-03-29] VITALS (110 sets, daily range): BP systolic 30–210; BP diastolic 17–120
[2021-03-29] MEDS: ALBUMIN HUMAN 25GM/100ML (25%) IV SCH ×3 (00:30→04:11)
[2021-03-29] MEDS: LACTULOSE 20G/30ML UDC PO SCH ×3 (00:30→12:00)
[2021-03-29] MEDS: BLOOD SUGAR DIAGNOSTIC STRIP TEST SCH ×3 (00:31→12:00)
[2021-03-29] MEDS: INSULIN LISPRO 100 UNITS/ML SUBCUT SCH ×3 (00:46→12:00)
[2021-03-29] MEDS: IPRATROPIUM/ALBUTEROL 0.5-3(2.5)MG/3ML NEB HHN SCH ×5 (01:45→20:11)
[2021-03-29] MEDS ORDERED: AMIODARONE HCL 150 MG in DEXT 5% WATER 100 ML IV NR (06:30)
[2021-03-29] MEDS: SODIUM CHLORIDE 0.9% INJ 3ML FLUSH IVF SCH ×2 (06:37→14:00)
[2021-03-29 06:43] LABS: HEMATOCRIT. 25.6 % (42.0-52.0); HEMOGLOBIN. 8.6 g/dL (14.0-18.0); MEAN CORPUSCULAR HEMOGLOBIN 29.9 pg (28.0-32.0); MEAN CORPUSCULAR VOLUME 88.6 fL (80.0-94.0); MEAN PLATELET VOLUME 10.3 fl (7.4-10.4); PLATELET 166 x1000/uL (130-400); RED BLOOD CELL COUNT 2.89 mill/uL (4.7-6.1); RED CELL DISTRIBUTION WIDTH 15.3 % (11.6-14.6)
[2021-03-29 08:22] LABS: NUCLEATED RED BLOOD CELLS 1 /100 WBC
[2021-03-29 08:22] LABS: BG BASE EXCESS 6.7 mmol/L (-2.0-2.0); BG CARBOXYHEMOGLOBIN 0.3 % (0.5-1.5); BG DEOXYHEMOGLOBIN 6.9 % (0.0-5.0); BG FRACTION INSPIRED OXYGEN 70; BG HCO3 ACT 30.4 mmol/L (22.0-26.0); BG METHEMOGLOBIN 0.3 % (0.0-1.5); BG OXYGEN SATURATION 93.1 % (92.0-98.5); BG OXYHEMOGLOBIN 92.5 % (94.0-97.0); BG PCO2 40.2 mmHg (35.0-45.0); BG PH 7.497 (7.350-7.450); BG PO2 68.2 mmHg (75.0-100.0); BG SAMPLE SITE RIGHT RADIAL; BG TOTAL RESPIRATORY RATE 12 b/min; BG VENT MODE VENT - AC
[2021-03-29 08:23] LABS: PLATELET ESTIMATE NORMAL
[2021-03-29] MEDS: HYDROCORTISONE 1% OINT 28.35GM TOP SCH (09:00)
[2021-03-29] MEDS: DEXT 5%/0.45% NACL 1000ML 1,000 ML IV SCH (09:00)
[2021-03-29] MEDS ORDERED: FUROSEMIDE 40MG/4ML VIAL IVP SCH (11:00)
[2021-03-29] MEDS: FAMOTIDINE 20MG/2ML VIAL IV SCH (11:02)
[2021-03-29] MEDS: METOPROLOL TARTRATE 25MG TABLET PO SCH (11:02)
[2021-03-29] MEDS: ASPIRIN 81MG TABLET PO SCH (11:02)
[2021-03-29] MEDS: AMIODARONE HCL 200 MG TABLET PO SCH ×2 (11:02→17:45)
[2021-03-29] MEDS: ENOXAPARIN 30MG/0.3ML SYR SUBCUT SCH (11:02)
[2021-03-29] MEDS: PIPERACILLIN/TAZOBACTAM 3.375 G in DEXTROSE 5% WATER 50 ML IV SCH (11:04)
[2021-03-29] MEDS: DOCUSATE SODIUM SUGAR FREE 100MG/10ML UDC NG SCH ×2 (11:04→17:00)
[2021-03-29 11:51] LABS: BG BASE EXCESS 4.5 mmol/L (-2.0-2.0); BG CARBOXYHEMOGLOBIN 0.3 % (0.5-1.5); BG DEOXYHEMOGLOBIN 14.9 % (0.0-5.0); BG HCO3 ACT 28.8 mmol/L (22.0-26.0); BG METHEMOGLOBIN 0.3 % (0.0-1.5); BG OXYHEMOGLOBIN 84.5 % (94.0-97.0); BG PH 7.454 (7.350-7.450); BG PO2 52.7 mmHg (75.0-100.0); BG SAMPLE SITE RIGHT RADIAL; BG TOTAL HEMOGLOBIN 9.9 g/dL (12.0-18.0); BG VENT MODE VENT - AC
[2021-03-29] MEDS ORDERED: GUAIFENESIN 200MG/10ML SUGAR FREE UDC PO SCH (12:15)
[2021-03-29] MEDS: FENTANYL CITRATE/PF 2,500 MCG in SODIUM CHLORIDE 0.9% 200 ML IV PRN ×2 (12:27→12:33)
[2021-03-29] MEDS: DOPAMINE 800MG PREMIX (DOUBLE) 250 ML IV PRN (12:35)
[2021-03-29] MEDS ORDERED: ACETAMINOPHEN 650MG SUPP PR PRN (13:00)
[2021-03-29 13:28] LABS: BG BASE EXCESS 3.5 mmol/L (-2.0-2.0); BG CARBOXYHEMOGLOBIN 0.3 % (0.5-1.5); BG DEOXYHEMOGLOBIN 16.6 % (0.0-5.0); BG FRACTION INSPIRED OXYGEN 100; BG HCO3 ACT 27.5 mmol/L (22.0-26.0); BG METHEMOGLOBIN 0.3 % (0.0-1.5); BG OXYGEN SATURATION 83.3 % (92.0-98.5); BG OXYHEMOGLOBIN 82.8 % (94.0-97.0); BG PCO2 39.8 mmHg (35.0-45.0); BG PH 7.458 (7.350-7.450); BG PO2 50.8 mmHg (75.0-100.0); BG SAMPLE SITE RIGHT RADIAL; BG TOTAL HEMOGLOBIN 10.8 g/dL (12.0-18.0); BG VENT MODE VENT - AC
[2021-03-29] MEDS ORDERED: ACETYLCYSTEINE 100MG/ML 10% VIAL 4ML INH SCH (14:00)
[2021-03-29] MEDS ORDERED: DEXAMETHASONE 4MG/ML 1ML VIAL IV SCH (16:00)
[2021-03-29] MEDS ORDERED: MIDAZOLAM 100MG/100ML PMX 100 ML IV PRN (16:15)
[2021-03-29] MEDS ORDERED: MIDAZOLAM HCL 100 MG in SODIUM CHLORIDE 0.9% 100 ML IV PRN (16:15)
[2021-03-29] MEDS: NOREPINEPHRINE 32 MG in DEXT 5% WATER 218 ML IV PRN (16:42)
[2021-03-29] MEDS ORDERED: AZITHROMYCIN 500 MG in DEXT 5% WATER 250 ML IV SCH (17:00)
[2021-03-29 17:25] LABS: BG CARBOXYHEMOGLOBIN 0.3 % (0.5-1.5); BG DEOXYHEMOGLOBIN 20.7 % (0.0-5.0); BG HCO3 ACT 22.8 mmol/L (22.0-26.0); BG METHEMOGLOBIN 0.2 % (0.0-1.5); BG OXYGEN SATURATION 79.2 % (92.0-98.5); BG OXYHEMOGLOBIN 78.8 % (94.0-97.0); BG PCO2 44.1 mmHg (35.0-45.0); BG PH 7.332 (7.350-7.450); BG PO2 56.1 mmHg (75.0-100.0); BG SAMPLE SITE RIGHT RADIAL; BG TOTAL HEMOGLOBIN 11.2 g/dL (12.0-18.0); BG VENT MODE VENT - AC
[2021-03-29] MEDS ORDERED: ALBUMIN HUMAN 12.5G/250ML (5%) IV NR (17:30)
[2021-03-29] MEDS ORDERED: EPINEPHRINE 10 MG in SODIUM CHLORIDE 0.9% 240 ML IV PRN (20:45)
[2021-03-29] MEDS ORDERED: PHENYLEPHRINE 100 MG in DEXT 5% WATER 240 ML IV PRN (20:45)
[2021-03-29] MEDS ORDERED: PIPERACILLIN/TAZOBACTAM 3.375 G in DEXTROSE 5% WATER 50 ML IV SCH (21:00)
== END 2021-03-29 23:45 | DRG 853 ==
LOC: ER 19:29 → 6WST 21:43 → ENRESERV 03-16 07:46 → 3WST 03-20 17:50 → CVICU 03-22 10:28
PROVIDERS: ADMIT Internal Medicine; ATTEND Internal Medicine
PROC: B211YZZ Fluoroscopy of Multiple Coronary Arteries using Other Contrast (ICD-10-PCS; 2021-03-20)
PROC: 4A023N7 Measurement of Cardiac Sampling and Pressure, Left Heart, Percutaneous Approach (ICD-10-PCS; 2021-03-20)
PROC: B215YZZ Fluoroscopy of Left Heart using Other Contrast (ICD-10-PCS; 2021-03-20)
PROC: 02100Z9 Bypass Coronary Artery, One Artery from Left Internal Mammary, Open Approach (ICD-10-PCS; principal; 2021-03-22)
PROC: 021209W Bypass Coronary Artery, Three Arteries from Aorta with Autologous Venous Tissue, Open Approach (ICD-10-PCS; 2021-03-22)
PROC: 06BP4ZZ Excision of Right Saphenous Vein, Percutaneous Endoscopic Approach (ICD-10-PCS; 2021-03-22)
PROC: 5A1221Z Performance of Cardiac Output, Continuous (ICD-10-PCS; 2021-03-22)
PROC: B24BZZ4 Ultrasonography of Heart with Aorta, Transesophageal (ICD-10-PCS; 2021-03-22)
PROC: 3E080GC Introduction of Other Therapeutic Substance into Heart, Open Approach (ICD-10-PCS; 2021-03-22)
PROC: 30233N1 Transfusion of Nonautologous Red Blood Cells into Peripheral Vein, Percutaneous Approach (ICD-10-PCS; 2021-03-22)
PROC: 30233R1 Transfusion of Nonautologous Platelets into Peripheral Vein, Percutaneous Approach (ICD-10-PCS; 2021-03-22)
PROC: 30233K1 Transfusion of Nonautologous Frozen Plasma into Peripheral Vein, Percutaneous Approach (ICD-10-PCS; 2021-03-24)
PROC: 02HV33Z Insertion of Infusion Device into Superior Vena Cava, Percutaneous Approach (ICD-10-PCS; 2021-03-26)
PROC: B548ZZA Ultrasonography of Superior Vena Cava, Guidance (ICD-10-PCS; 2021-03-26)
PROC: 0BH17EZ Insertion of Endotracheal Airway into Trachea, Via Natural or Artificial Opening (ICD-10-PCS; 2021-03-26)
PROC: 5A1945Z Respiratory Ventilation, 24-96 Consecutive Hours (ICD-10-PCS; 2021-03-26)
DX: A41.9 Sepsis, unspecified organism (principal); I21.4 Non-ST elevation (NSTEMI) myocardial infarction; N17.0 Acute kidney failure with tubular necrosis; J96.01 Acute respiratory failure with hypoxia; G92.8 Other toxic encephalopathy; R65.21 Severe sepsis with septic shock; J69.0 Pneumonitis due to inhalation of food and vomit; U07.1 COVID-19; E44.1 Mild protein-calorie malnutrition; E87.0 Hyperosmolality and hypernatremia; I25.110 Atherosclerotic heart disease of native coronary artery with unstable angina pectoris; E78.49 Other hyperlipidemia; D69.6 Thrombocytopenia, unspecified; D64.9 Anemia, unspecified; G90.8 Other disorders of autonomic nervous system; E83.52 Hypercalcemia; E83.41 Hypermagnesemia; K59.00 Constipation, unspecified; E87.6 Hypokalemia; E87.70 Fluid overload, unspecified; I65.21 Occlusion and stenosis of right carotid artery; I12.9 Hypertensive chronic kidney disease with stage 1 through stage 4 chronic kidney disease, or unspecified chronic kidney disease; N18.2 Chronic kidney disease, stage 2 (mild); Z68.22 Body mass index [BMI] 22.0-22.9, adult; I25.2 Old myocardial infarction
CPT/HCPCS: 31500; 36415; 36600; 70498; 71045; 71250; 74018; 76770; 76937; 78580; 80048; 80053; 80076; 80202; 80305; 81003; 82140; 82375; 82550; 82553; 82565; 82805; 82962; 83036; 83735; 83880; 84100; 84145; 84478; 84484; 84520; 85025; 85027; 85347; 85384; 85576; 86850; 86900; 86920; 86927; 87070; 87077; 87186; 87426; 90686; 92950; 93005; 93306; 93458; 93880; 93970; 94002; 94003; 94640; 97110; 97163; 97166; 97530; 97535; 99291; C1725; C1729; C1751; C1758; C1769; C1887; C1893; J0282; J0456; J0690; J1100; J1265; J1630; J1644; J1650; J1815; J1940; J2060; J2250; J2270; J2370; J2405; J2440; J2543; J2704; J2720; J3010; J3370; J3475; J3480; J3490; J7030; J7040; J7050; J7060; J7070; L3908; P9016; P9017; P9034; P9041; P9047; Q9967; Q9968